=== PATIENT | female | born 1985 | race Caucasian/White ===

== ENCOUNTER 2016-11-05 12:50 | Emergency (ER) | payer OTHER, SELFPAY ==
[2016-11-05] MEDS ORDERED: Acetaminophen/Codeine 30-300mg Tablet ONE (13:04)
[2016-11-05] MEDS ORDERED: Ketorolac Tromethamine 60 MG/2 ML VIAL ONE (13:35)
--- NOTE | 2016-11-05 14:08 | ERRECORD ---
[facility] EMERGENCY RECORD HPI EAR PAIN (13:12 [facility]) CHIEF COMPLAINT: Patient presents for evaluation of pain, to the left ear. HISTORIAN: History provided by patient, 31F presents with complaints of one day of left ear pain, as well as one day of tailbone pain. States the ear pain started last night and has been present consistently since then. Denies trauma to the ear, denies fever or discharge. She also reports that she has pain in her tailbone from jumping onto the sink Saturday night and hitting her coccyx on the faucet. has pain with sitting and lying on her back. denies vaginal complaints or dysuria. LOCATION: Symptoms are localized, most severe in the left ear. QUALITY: Pain is sharp in nature. TIME COURSE: Gradual onset of symptoms, Symptoms are worsening. RELIEVED BY: Patient's condition relieved by nothing because patient has not tried anything for relief. ROS (13:15 [facility]) CONSTITUTIONAL: Negative constitutional review of systems, Historian denies chills, denies fever. EYES: Negative eye review of systems, Historian denies eye pain, denies vision changes. ENT: Historian reports otalgia, left ear pain, no discharge. CARDIOVASCULAR: Negative cardiovascular review of systems, Historian denies chest pain, denies palpitations. RESPIRATORY: Negative respiratory review of systems, Historian denies cough, denies shortness of breath. GI: Negative gastrointestinal review of systems, Historian denies abdominal pain, denies constipation, denies diarrhea, denies nausea, denies vomiting. GENITOURINARY FEMALE: Negative genitourinary review of systems, Historian denies dysuria, denies frequency. MUSCULOSKELETAL: pain at superior aspect of gluteal cleft, worse with sitting and lying supine. SKIN: Negative skin review of systems, Historian denies rash, denies skin changes. NEUROLOGIC: Negative neurologic review of systems, Historian denies headache, denies mental status changes, denies paralysis, denies paresthesias, denies sensory changes. HEMO/LYMPHATIC: Normal hematologic/lymphatic system review, Historian denies abnormal blood clotting. ALLERGIC/IMMUNOLOGIC: Normal allergy/immunologic system review, Historian denies frequent infections. PAST MEDICAL HISTORY (13:09 [facility]) MEDICAL HISTORY: Notes: h/o migraines. FEMALE SURGICAL HISTORY: Surgical history of hysterectomy, Surgical history of tonsillectomy, Surgical history of tubal ligation, HYMENECTOMY, ENDOSCOPY, ABLATION. REVIEWED. &a-1R&a+25V*p+0X*[id number]*c202B*c15G*c2P*p-0X&a-25V&a+1R Name: Karen Yi : 1985 F31 MedRec: [id number] AcctNum: [id number] Prepared: SatNov 05, 2016 14:51 by Interface Page 1 of 4 pMD [facility] EMERGENCY RECORD PSYCHIATRIC HISTORY: Notes: HX OF ANXIETY AND DEPRESSION. SOCIAL HISTORY: Patient denies alcohol use, Patient denies drug use, Patient currently uses tobacco, smokes cigarettes, daily, Patient smokes 1/2 packs per day, Patient denies drug use, Lives at home. KNOWN ALLERGIES fluoxetine HCl (Unconfirmed) ibuprofen: Severity: Mild, - SWELLING PROzac: Reaction: Rash, Severity: Severe, - SWELLING Toradol (Unconfirmed): Reaction: Hives CURRENT MEDICATIONS (13:03 [facility]) None VITAL SIGNS VITAL SIGNS: BP: 117/87, Pulse: 109, Resp: 18 (Non-Labored), Temp: 98.2 (Oral), Pain: 10, O2 sat: 99 on Room Air, Time: 11/05/2016 12:56. (12:56 [facility]) BP: 108/63, Pulse: 75, Resp: 18, Temp: 98.2 (Oral), Pain: 9, O2 sat: 98 on Room Air, Time: 11/05/2016 13:43. (13:43 [facility]) PHYSICAL EXAM (13:15 [facility]) CONSTITUTIONAL: Vital signs reviewed, Patient afebrile, Pulse normal, Blood pressure normal, Respiratory rate normal, Patient appears non toxic, Patient appears pain free, Patient alert and oriented to person, place and time. HEAD: Head exam normal, Head exam included findings of head atraumatic, normocephalic. EYES: Eye exam normal, Eye exam included findings of eyelids normal to inspection, Pupils equally round and reactive to light, Extraocular muscles intact, no nystagmus. ENT: Ear exam included findings of, left external ear with erythema, right external ear normal, tympanic membrane injected on the left, tympanic membrane normal on the right, hearing normal on the left, hearing normal on the right, Pharynx exam normal, Uvula exam normal, Tonsil exam normal, Mouth exam normal, mucous membranes moist, teeth normal. NECK: Neck exam normal, Neck exam included findings of normal range of motion, Trachea midline, no meningeal signs, no cervical adenopathy, no tenderness. RESPIRATORY CHEST: Respiratory and chest exam normal, Respiratory exam included findings of no respiratory distress, Breath sounds clear. CARDIOVASCULAR: Cardiovascular assessment normal, Cardiovascular exam included findings of heart rate regular rate and rhythm, Heart sounds normal. ABDOMEN FEMALE: Abdominal exam included findings of abdomen nontender, Bowel sounds normal, no distension, no mass, no pulsatile &a-1R&a+25V*p+0X*q3602I*c202B*c15G*c2P*p-0X&a-25V&a+1R Name: Karen Yi : 1985 F31 MedRec: [id number] AcctNum: [id number] Prepared: SatNov 05, 2016 14:51 by Interface Page 2 of 4 pMD [facility] EMERGENCY RECORD masses, no peritoneal signs, no rigidity, no guarding, no rebound, Rovsing's sign absent. BACK: range of motion normal, Tenderness, midline to the coccyx. UPPER EXTREMITY: Upper extremity exam normal, Upper extremity exam included findings of inspection normal, Range of motion normal, Motor strength normal, Sensation intact, Radial pulse normal. LOWER EXTREMITY: Lower extremity exam normal, Lower extremity exam included findings of inspection normal, Range of motion normal, Motor strength normal, Sensation intact, Posterior tibial pulse normal, Pedal pulse normal. NEURO: Neuro exam normal, Neuro exam findings include patient oriented to person, place and time, Speech normal, Gait normal, Cranial nerves intact, no focal motor deficits, no focal sensory deficits. SKIN: Skin exam normal, Skin exam included findings of skin warm, dry, and normal in color, no rash. PSYCHIATRIC: Psychiatric exam normal, Normal affect. MEDICATION ADMINISTRATION SUMMARY Drug Name: Toradol intramuscular, Dose Ordered: 60 mg, Route: Intramuscular, Status: Given, Time: 13:42 11/05/2016, Drug Name: Cipro HC, Dose Ordered: 3 Drps, Route: Ear Left, Status: Given, Time: 13:34 11/05/2016, Drug Name: Tylenol-Codeine #3, Dose Ordered: 1 tab(s), Route: Oral, Status: Given, Time: 13:05 11/05/2016, Detailed record available in Medication Service section. DOCTOR NOTES (13:18 [facility]) RE-EVALUATION: Routine re-evaluation, after administration of analgesics, The patient's condition has improved. TEXT: Patient presented with two separate complaints that do not appear to be related. I believe her ear pain is secondary to otitis media, and have started topical antibiotics. No signs of systemic infection. I also believe she likely has a coccygeal fracture, which should resolve spontaneously. Prescribed analgesics and a ring cushion, instructed follow up with her PMD. PATIENT STATUS: Patient has improved since arrival to emergency department. PATIENT PLAN: The patient will be discharged, The patient will follow up with primary care physician. 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 &a-1R&a+25V*p+0X*o7222S*c202B*c15G*c2P*p-0X&a-25V&a+1R Name: Karen Yi : 1985 F31 MedRec: [id number] AcctNum: [id number] Prepared: SatNov 05, 2016 14:51 by Interface Page 3 of 4 pMD [facility] EMERGENCY RECORD PRESCRIPTION Cipro HC: SUSPENSION, DROPS(FINAL DOSAGE FORM)(ML) : 0.2 %-1 % : OTIC : Quantity: 3 Unit: Drps Route: OTIC Schedule: 2 times a day Dispense: QS May substitute. Refills: No Refills . (13:07 [facility]) NOTES: for 7 days No refills. (13:07 [facility]) amoxicillin: CAPSULE : 500 mg : ORAL : Quantity: 1 Unit: tab(s) Route: ORAL Schedule: 2 times a day Dispense: 10 May substitute. Refills: No Refills . (13:10 [facility]) NOTES: No refills. (13:10 [facility]) Inflatable Ring Cushion: EACH : : MISCELLANEOUS : Quantity: 1 Unit: units Route: MISCELLANEOUS Schedule: Dispense: * May substitute. Refills: No Refills . (13:12 [facility]) NOTES: No refills. (13:12 [facility]) DISPOSITION PATIENT: Disposition Type: Discharge, Disposition: *Discharge Home. (13:26 [facility]) Patient left the department. (14:01 [facility]) [place]: AHOO=RADHA Mcgee, January [facility]=MD Marilou, Collin [facility]=PARTHA Bazan, Richardson &a-1R&a+25V*p+0X*[id number]*c202B*c15G*c2P*p-0X&a-25V&a+1R Name: Karen Yi : 1985 F31 MedRec: [id number] AcctNum: [id number] Prepared: SatNov 05, 2016 14:51 by Interface Page 4 of 4 pMD [facility]D
--- NOTE | 2016-11-05 14:11 | PICIS ---
[facility] EMERGENCY RECORD TRIAGE (SatNov 05, 2016 12:58 MZOC) TRIAGE NOTES: saturday night injury to coccyx, L ear pain onset last night. (SatNov 05, 2016 12:58 MZOC) PATIENT: NAME: Karen Yi, AGE: 31, GENDER: female, : Sat1985, TIME OF GREET: SatNov 05, 2016 12:51, PREFERRED LANGUAGE: [place], ETHNICITY: Not or , HIGH ALERT: HIGH ALERT 3, ECODE BILLING MAP: [place], SSN: [id number], Zip Code: [address], KG WEIGHT: 63.5 (est.), PHONE: , , , PERSON ID: [id number], PCP: none. (SatNov 05, 2016 12:58 MZOC) PAYMENT: [employer] Self Pay. (12:59) COMPLAINT: tail bone pain, L ear pain. (SatNov 05, 2016 12:58 MZOC) ADMISSION: URGENCY: 3 Urgent, ADMISSION SOURCE: Home, TRANSPORT: CAR, BED: ER -02. (SatNov 05, 2016 12:58 MZOC) IMMUNIZATIONS: Flu vaccine not up to date, Tetanus immunization up to date, Pneumococcal vaccine not up to date. (13:09 MZOC) SIRS SCORING: Heart Rate 55-109 (0), Temp range 96.8-101.1 (0), respiratory rate 12-24 (0), Mental Status altered: no (0), Infection or Suspected Infection: No. (13:09 MZOC) TRIAGE SCREENING: Patient denies suicidal ideation, Patient denies presence of domestic violence. (13:09 MZOC) LMP: LMP: Hysterectomy. (13:09 MZOC) TREATMENTS IN PROGRESS: Treatments given Prehospital: none. (13:09 MZOC) PROVIDERS: TRIAGE NURSE: Ines Bazan RN. (SatNov 05, 2016 12:58 MZOC) VITAL SIGNS: BP 117/87, Pulse 109, Resp 18, (Non-Labored), Temp 98.2, (Oral), Pain 10, O2 Sat 99, on Room Air, Time 11/05/2016 12:56. (12:56 MZOC) PREVIOUS VISIT ALLERGIES: ibuprofen, PROzac, Toradol. (SatNov 05, 2016 12:58 MZOC) ibuprofen, PROzac, Toradol. (13:09 MZOC) KNOWN ALLERGIES fluoxetine HCl (Unconfirmed) ibuprofen: Severity: Mild, - SWELLING PROzac: Reaction: Rash, Severity: Severe, - SWELLING Toradol (Unconfirmed): Reaction: Hives CURRENT MEDICATIONS (13:03 MZOC) None VITAL SIGNS VITAL SIGNS: BP: 117/87, Pulse: 109, Resp: 18 (Non-Labored), Temp: 98.2 (Oral), Pain: 10, O2 sat: 99 on Room Air, Time: 11/05/2016 12:56. (12:56 MZOC) BP: 108/63, Pulse: 75, Resp: 18, Temp: 98.2 (Oral), Pain: 9, O2 sat: 98 &a-1R&a+25V*p+0X*e5450Z*c202B*c15G*c2P*p-0X&a-25V&a+1R Name: Karen Yi : 1985 F31 MedRec: [id number] AcctNum: [id number] Prepared: SatNov 05, 2016 14:57 by Interface Page 1 of 7 pMD [facility] EMERGENCY RECORD on Room Air, Time: 11/05/2016 13:43. (13:43 [facility]) NURSING ASSESSMENT: HEAD-TO-TOE (13:00 MZOC) CONSTITUTIONAL: Patient arrives ambulatory, Gait steady, History obtained from patient, Patient appears comfortable, Patient cooperative, Patient alert, Oriented to person, place and time, Skin warm, Skin dry, Skin normal in color, Mucous membranes pink, Mucous membranes moist, Patient is well-groomed, Patient complains of multiple complaints, see triage notes. PAIN: on a scale 0-10 patient rates pain as 10, Pain exacerbated by nothing, Nothing has been tried to alleviate the pain. ENT: Ear assessment findings include, left ear with drainage, left ear with redness, right ear normal, Nasal assessment findings include nose normal to inspection, Sinuses normal, Nasal mucosa normal, Mouth and throat assessment findings include mouth inspection normal, Uvula normal, Tonsils normal, Mucous membranes pink, and moist, Able to swallow, Speech normal. BACK: Back assessment findings include tenderness to, coccyx area, no paresthesias to extremities, no weakness to extremities, no incontinence of bowel or bladder, Right radial pulse +3(easily palpated, considered normal), Left radial pulse +3(easily palpated, considered normal), Left dorsalis pedis pulse +3(easily palpated, considered normal), Right dorsalis pedis pulse +3(easily palpated, considered normal), Notes: no coccygeal bruising or signs of injury. pt c/o pain upon palpation and when pt moving. SAFETY: Side rails up, Cart/Stretcher in lowest position, Call light within reach, Hospital ID band on. NURSING PROCEDURE: DISCHARGE NOTE (14:00 MZOC) DISCHARGE: Patient discharged to home, ambulating with assistance, family driving, accompanied by //partner, Discharge instructions given to patient, Simple or moderate discharge teaching performed, by Ines RN, Prescriptions given and instructions on side effects given, Name of prescription(s) given: toradol, cipro, inflatable ring, Above person(s) verbalized understanding of discharge instructions and follow-up care, Patient treated and evaluated by physician. BELONGINGS: Belongings and valuables with patient upon arrival to the Emergency Department include:, Belongings and valuables with patient at time of discharge include:, Belongings remain with patient, Valuables remain with patient. SAFETY: Side rails up, Cart/Stretcher in lowest position, Family at bedside, Call light within reach, Hospital ID band on. NURSING PROCEDURE: NURSE NOTES (13:06 MZOC) NURSES NOTES: Notes: prior to med administration pt verified she had a ride home and was not driving herself. pt RR even and unlabored. &a-1R&a+25V*p+0X*c3651H*c202B*c15G*c2P*p-0X&a-25V&a+1R Name: YiMike malavecristina Tristan : 1985 F31 MedRec: [id number] AcctNum: [id number] Prepared: SatNov 05, 2016 14:57 by Interface Page 2 of 7 pMD [facility] EMERGENCY RECORD NURSING PROCEDURE: TRANSPORT TO [facility] PATIENT IDENTIFIER: Patient actively involved in identification process, Patient's identity verified by patient stating name, Patient's identity verified by patient stating date, Patient's identity verified by hospital ID bracelet. (13:10 AHOO) TRANSPORT TO TESTS: Patient transported to x-ray, ambulatory, Accompanied by x-ray integrated pest management technician. (13:10 AHOO) FOLLOW-UP: After procedure, patient returned to emergency department. (13:20 AHOO) ORDER DETAILS Order Name: XR Sacrum and Coccyx STANDARD, Status: Active, Time: 13:02 11/05/2016, User: JAMES, - Ordered for: MD Zamarripa Jason, - Entered by: MD Zamarripa Jason - SatNov 05, 2016 13:02, - Quantity: 1. MEDICATION ADMINISTRATION SUMMARY Drug Name: Toradol intramuscular, Dose Ordered: 60 mg, Route: Intramuscular, Status: Given, Time: 13:42 11/05/2016, Drug Name: Cipro HC, Dose Ordered: 3 Drps, Route: Ear Left, Status: Given, Time: 13:34 11/05/2016, Drug Name: Tylenol-Codeine #3, Dose Ordered: 1 tab(s), Route: Oral, Status: Given, Time: 13:05 11/05/2016, Detailed record available in Medication Service section. MEDICATION SERVICE Cipro HC: Order: Cipro HC (ciprofloxacin HCl/hydrocortisone) - Dose: 3 Drps : Ear Left Ordered by: Collin Zamarripa MD Entered by: Collin Zamarripa MD SatNov 05, 2016 13:20 , Acknowledged by: Perlita Mcgee LVN SatNov 05, 2016 13:34 Documented as given by: Perlita Mcgee LVN SatNov 05, 2016 13:34 Patient, Medication, Dose, Route and Time verified prior to administration. Amount given: 3 drops, Correct patient, time, route, dose and medication confirmed prior to administration, Patient advised of actions and side-effects prior to administration, Allergies confirmed and medications reviewed prior to administration, Patient in position of comfort, Side rails up, Cart in lowest position, Family at bedside. Toradol intramuscular: Order: Toradol intramuscular (ketorolac tromethamine) - Dose: 60 mg : Intramuscular POTENTIAL ALLERGY REACTION: 'Toradol [ketorolac/ketorolac tromethamine]', 'ibuprofen' - Reviewed with patient, patient states she has tolerated before Ordered by: Collin Zamarripa MD &a-1R&a+25V*p+0X*q1373S*c202B*c15G*c2P*p-0X&a-25V&a+1R Name: Karen Yi : 1985 F31 MedRec: [id number] AcctNum: [id number] Prepared: SatNov 05, 2016 14:57 by Interface Page 3 of 7 pMD [facility] EMERGENCY RECORD Entered by: Collin Zamarripa MD SatNov 05, 2016 13:34 , Acknowledged by: Perlita Mcgee LVN SatNov 05, 2016 13:34 Documented as given by: Perlita Mcgee LVN SatNov 05, 2016 13:42 Patient, Medication, Dose, Route and Time verified prior to administration. IM medication, Amount given: 60mg, Medication administered to left buttock, Correct patient, time, route, dose and medication confirmed prior to administration, Patient advised of actions and side-effects prior to administration, Allergies confirmed and medications reviewed prior to administration, Patient in position of comfort, Side rails up, Cart in lowest position, Family at bedside, per md sullivan to give the med IM. Tylenol-Codeine #3: Order: Tylenol-Codeine #3 (acetaminophen/codeine phosphate) - Dose: 1 tab(s) : Oral Ordered by: Collin Zamarripa MD Entered by: Collin Zamarripa MD SatNov 05, 2016 13:00 Documented as given by: Ines Bazan RN SatNov 05, 2016 13:05 Patient, Medication, Dose, Route and Time verified prior to administration. Amount given: 1 tab, Site: Medication administered P.O., Patient appears Awake and alert- acceptable, Correct patient, time, route, dose and medication confirmed prior to administration, Patient advised of actions and side-effects prior to administration, Allergies confirmed and medications reviewed prior to administration, Patient in position of comfort, Side rails up, Cart in lowest position, Call light in reach. HPI EAR PAIN (13:12 [facility]) CHIEF COMPLAINT: Patient presents for evaluation of pain, to the left ear. HISTORIAN: History provided by patient, 31F presents with complaints of one day of left ear pain, as well as one day of tailbone pain. States the ear pain started last night and has been present consistently since then. Denies trauma to the ear, denies fever or discharge. She also reports that she has pain in her tailbone from jumping onto the sink Saturday night and hitting her coccyx on the faucet. has pain with sitting and lying on her back. denies vaginal complaints or dysuria. LOCATION: Symptoms are localized, most severe in the left ear. QUALITY: Pain is sharp in nature. TIME COURSE: Gradual onset of symptoms, Symptoms are worsening. RELIEVED BY: Patient's condition relieved by nothing because patient has not tried anything for relief. ROS (13:15 [facility]) CONSTITUTIONAL: Negative constitutional review of systems, Historian denies chills, denies fever. EYES: Negative eye review of systems, Historian denies eye pain, denies vision changes. ENT: Historian reports otalgia, left ear pain, no &a-1R&a+25V*p+0X*e6980Y*c202B*c15G*c2P*p-0X&a-25V&a+1R Name: Karen Yi : 1985 F31 MedRec: [id number] AcctNum: [id number] Prepared: SatNov 05, 2016 14:57 by Interface Page 4 of 7 pMD [facility] EMERGENCY RECORD discharge. CARDIOVASCULAR: Negative cardiovascular review of systems, Historian denies chest pain, denies palpitations. RESPIRATORY: Negative respiratory review of systems, Historian denies cough, denies shortness of breath. GI: Negative gastrointestinal review of systems, Historian denies abdominal pain, denies constipation, denies diarrhea, denies nausea, denies vomiting. GENITOURINARY FEMALE: Negative genitourinary review of systems, Historian denies dysuria, denies frequency. MUSCULOSKELETAL: pain at superior aspect of gluteal cleft, worse with sitting and lying supine. SKIN: Negative skin review of systems, Historian denies rash, denies skin changes. NEUROLOGIC: Negative neurologic review of systems, Historian denies headache, denies mental status changes, denies paralysis, denies paresthesias, denies sensory changes. HEMO/LYMPHATIC: Normal hematologic/lymphatic system review, Historian denies abnormal blood clotting. ALLERGIC/IMMUNOLOGIC: Normal allergy/immunologic system review, Historian denies frequent infections. PAST MEDICAL HISTORY (13:09 [facility]) MEDICAL HISTORY: Notes: h/o migraines. FEMALE SURGICAL HISTORY: Surgical history of hysterectomy, Surgical history of tonsillectomy, Surgical history of tubal ligation, HYMENECTOMY, ENDOSCOPY, ABLATION. REVIEWED. PSYCHIATRIC HISTORY: Notes: HX OF ANXIETY AND DEPRESSION. SOCIAL HISTORY: Patient denies alcohol use, Patient denies drug use, Patient currently uses tobacco, smokes cigarettes, daily, Patient smokes 1/2 packs per day, Patient denies drug use, Lives at home. PHYSICAL EXAM (13:15 [facility]) CONSTITUTIONAL: Vital signs reviewed, Patient afebrile, Pulse normal, Blood pressure normal, Respiratory rate normal, Patient appears non toxic, Patient appears pain free, Patient alert and oriented to person, place and time. HEAD: Head exam normal, Head exam included findings of head atraumatic, normocephalic. EYES: Eye exam normal, Eye exam included findings of eyelids normal to inspection, Pupils equally round and reactive to light, Extraocular muscles intact, no nystagmus. ENT: Ear exam included findings of, left external ear with erythema, right external ear normal, tympanic membrane injected on the left, tympanic membrane normal on the right, hearing normal on the left, hearing normal on the right, Pharynx exam normal, Uvula exam normal, Tonsil exam normal, Mouth exam normal, mucous membranes moist, teeth normal. &a-1R&a+25V*p+0X*k2718Y*c202B*c15G*c2P*p-0X&a-25V&a+1R Name: Karen Yi : 1985 F31 MedRec: [id number] AcctNum: [id number] Prepared: SatNov 05, 2016 14:57 by Interface Page 5 of 7 pMD [facility] EMERGENCY RECORD NECK: Neck exam normal, Neck exam included findings of normal range of motion, Trachea midline, no meningeal signs, no cervical adenopathy, no tenderness. RESPIRATORY CHEST: Respiratory and chest exam normal, Respiratory exam included findings of no respiratory distress, Breath sounds clear. CARDIOVASCULAR: Cardiovascular assessment normal, Cardiovascular exam included findings of heart rate regular rate and rhythm, Heart sounds normal. ABDOMEN FEMALE: Abdominal exam included findings of abdomen nontender, Bowel sounds normal, no distension, no mass, no pulsatile masses, no peritoneal signs, no rigidity, no guarding, no rebound, Rovsing's sign absent. BACK: range of motion normal, Tenderness, midline to the coccyx. UPPER EXTREMITY: Upper extremity exam normal, Upper extremity exam included findings of inspection normal, Range of motion normal, Motor strength normal, Sensation intact, Radial pulse normal. LOWER EXTREMITY: Lower extremity exam normal, Lower extremity exam included findings of inspection normal, Range of motion normal, Motor strength normal, Sensation intact, Posterior tibial pulse normal, Pedal pulse normal. NEURO: Neuro exam normal, Neuro exam findings include patient oriented to person, place and time, Speech normal, Gait normal, Cranial nerves intact, no focal motor deficits, no focal sensory deficits. SKIN: Skin exam normal, Skin exam included findings of skin warm, dry, and normal in color, no rash. PSYCHIATRIC: Psychiatric exam normal, Normal affect. EVENTS TRANSFER: Triage to Emergency Emergency Room -02. (SatNov 05, 2016 12:58 [facility]) Removed from Emergency Emergency Room -02. (14:01 [facility]) DOCTOR NOTES (13:18 [facility]) RE-EVALUATION: Routine re-evaluation, after administration of analgesics, The patient's condition has improved. TEXT: Patient presented with two separate complaints that do not appear to be related. I believe her ear pain is secondary to otitis media, and have started topical antibiotics. No signs of systemic infection. I also believe she likely has a coccygeal fracture, which should resolve spontaneously. Prescribed analgesics and a ring cushion, instructed follow up with her PMD. PATIENT STATUS: Patient has improved since arrival to emergency department. PATIENT PLAN: The patient will be discharged, The patient will follow up with primary care physician. PROBLEM LIST &a-1R&a+25V*p+0X*r4434F*c202B*c15G*c2P*p-0X&a-25V&a+1R Name: Karen Yi Kun : 1985 F31 MedRec: [id number] AcctNum: [id number] Prepared: SatNov 05, 2016 14:57 by Interface Page 6 of 7 pMD [facility] EMERGENCY RECORD No recorded problems DIAGNOSIS (13:26 [facility]) FINAL: PRIMARY: Coccyx fracture, ADDITIONAL: OTITIS ICT [employer] OTH DZ CLASS ELSW UN. DISPOSITION PATIENT: Disposition Type: Discharge, Disposition: *Discharge Home. (13:26 [facility]) Patient left the department. (14:01 [facility]) INSTRUCTION (13:28 [facility]) DISCHARGE: COCCYX FRACTURE, OTITIS EXTERNA ADULT. SPECIAL: Three drops twice a day in the left ear. Ring cushion for pain, Tylenol and Tramadol as necessary. Follow up with your primary doctor if pain persists. PRESCRIPTION Cipro HC: SUSPENSION, DROPS(FINAL DOSAGE FORM)(ML) : 0.2 %-1 % : OTIC : Quantity: 3 Unit: Drps Route: OTIC Schedule: 2 times a day Dispense: QS May substitute. Refills: No Refills . (13:07 [facility]) NOTES: for 7 days No refills. (13:07 [facility]) amoxicillin: CAPSULE : 500 mg : ORAL : Quantity: 1 Unit: tab(s) Route: ORAL Schedule: 2 times a day Dispense: 10 May substitute. Refills: No Refills . (13:10 [facility]) NOTES: No refills. (13:10 [facility]) Inflatable Ring Cushion: EACH : : MISCELLANEOUS : Quantity: 1 Unit: units Route: MISCELLANEOUS Schedule: Dispense: * May substitute. Refills: No Refills . (13:12 [facility]) NOTES: No refills. (13:12 [facility]) ADMIN (14:48 [facility]) DIGITAL SIGNATURE: MD Zamarripa Jason. [place]: OO=RADHA Mcgee, January [facility]=MD Zamarripa Jason [facility]=PARTHA Bazan, [facility] &a-1R&a+25V*p+0X*a3109O*c202B*c15G*c2P*p-0X&a-25V&a+1R Name: Karen Yi Kun : 1985 F31 MedRec: [id number] AcctNum: [id number] Prepared: Christy Nov 05, 2016 14:57 by Interface Page 7 of 7 pMD MTDD
--- NOTE | 2016-11-05 20:55 | RAD ---
SACRUM AND COCCYX: Date: 11-05-16 FINDINGS: Three views are submitted. On the lateral view there is a question of a line in the next to last co ccygeal segment that may be a small nondisplaced fracture. The exam was otherwise unremarkable. Th e SI joints are symmetrical. The arcuate lines of the sacrum appear intact. The pubic rings appear intact and the symphysis is normal in width. IMPRESSION: Possible hairline fracture of the next to last coccygeal segment. POS: HOME
== END 2016-11-05 13:57 | disposition home or self-care (01) ==
LOC: BURERS 12:50
DX: S32.2XXA Fracture of coccyx, initial encounter for closed fracture (principal); H62.40 Otitis externa in other diseases classified elsewhere, unspecified ear; F41.9 Anxiety disorder, unspecified; F32.9 Major depressive disorder, single episode, unspecified; F17.210 Nicotine dependence, cigarettes, uncomplicated; W22.8XXA Striking against or struck by other objects, initial encounter; Y93.39 Activity, other involving climbing, rappelling and jumping off
CPT/HCPCS: 72220; 96372; J1885

== ENCOUNTER 2017-02-24 10:04 | Emergency (ER) | payer BC, SELFPAY ==
[2017-02-24] MEDS ORDERED: Morphine Sulfate 2 MG/ML SYRINGE ONE (10:20)
[2017-02-24] MEDS ORDERED: Promethazine HCl 25 MG/ML VIAL ONE (10:20)
== END 2017-02-24 11:06 | disposition home or self-care (01) ==
LOC: BURERS 10:04
DX: M25.531 Pain in right wrist (principal); S62.101D Fracture of unspecified carpal bone, right wrist, subsequent encounter for fracture with routine healing; F41.9 Anxiety disorder, unspecified; F32.9 Major depressive disorder, single episode, unspecified; F17.210 Nicotine dependence, cigarettes, uncomplicated; X58.XXXD Exposure to other specified factors, subsequent encounter
CPT/HCPCS: 96372; J2270; J2550

== ENCOUNTER 2017-03-13 16:48 | Emergency (ER) | payer BC ==
[2017-03-13] MEDS ORDERED: Ondansetron HCl/PF 4 MG/2 ML Vial ONE (17:30)
[2017-03-13 17:37] LABS: BHCG - Serum Negative (NEGATIVE); Pregs Control Background? CLEAR/WHITE (CLR/WHITE); Pregs Control Bar Appear? YES (CONTROL BAR)
[2017-03-13 17:40] LABS: ALT (SGPT) 13 U/L (8-55); AST (SGOT) 12 U/L (5-34); Albumin 3.9 g/dL (3.5-5.0); Alkaline Phosphatase 45 U/L (40-150); Anion Gap 11 mmol/L (10-20); Bilirubin, Total 0.4 mg/dL (0.2-1.2); Calc. Creatinine Clearance 0 mL/min (70-130); Calcium 8.6 mg/dL (7.8-10.44); Carbon Dioxide 25 mmol/L (22-29); Chloride 105 mmol/L (98-107); Estimated GFR-MDRD Greater than 90; Glucose 111 mg/dL (70-105); Lipase 21 U/L (8-78); Potassium 4.1 mmol/L (3.5-5.1); Protein, Total 6.9 g/dL (6.0-8.3); Sodium 137 mmol/L (136-145)
[2017-03-13 17:45] LABS: BUN (Urea Nitrogen) 11 mg/dL (7.0-18.7)
[2017-03-13 18:00] LABS: #Basophils 0.1 thou/uL (0.0-0.2); #Eosinphils 0.1 thou/uL (0.0-0.7); #Monocytes 0.4 thou/uL (0.11-0.59); %Basophils 0.7 % (0.0-1.0); %Eosinophils 0.8 % (0.0-10.0); %Lymphocytes 28.5 % (21.0-51.0); %Monocytes 3.8 % (0.0-10.0); %Neutrophils 66.1 % (42.0-75.0); Hemoglobin 14.9 g/dL (12.0-16.0); MDiff Complete? YES; Macrocytosis SLIGHT = 6-15 cells (100X) (0-5/hpf); Mean Corpuscular HGB CONC 32.6 g/dL (32.0-36.0); Mean Corpuscular Hemoglobin 34.3 pg (27.0-31.0); Mean Platelet Volume 6.5 fL (7.4-10.4); Platelet Count 294 thou/uL (130-400); RBC Distribution Width 12.6 % (11.5-14.5); Red Blood Cell (RBC) Count 4.34 mill/uL (4.20-5.40); White Blood Cell (WBC) Count 10.6 thou/uL (4.8-10.8)
[2017-03-13] MEDS ORDERED: Acetaminophen 500 MG TAB ONE ×2 (18:11)
== END 2017-03-13 18:48 | disposition home or self-care (01) ==
LOC: BURERS 16:48
DX: K52.9 Noninfective gastroenteritis and colitis, unspecified (principal); F41.9 Anxiety disorder, unspecified; F32.9 Major depressive disorder, single episode, unspecified; F17.210 Nicotine dependence, cigarettes, uncomplicated
CPT/HCPCS: 80053; 83690; 84703; 85025; 96361; 96374; J2405